=== PATIENT | female | born 1930 | race Two or more races ===

== ENCOUNTER 2018-05-28 13:30 | Outpatient (CLI) | payer MEDICARE, MEDICAID | END 2018-05-28 23:59 | disposition home health service (06) | LOC: WOU 13:30 | PROVIDERS: ATTEND Podiatrist Foot & Ankle Surgery | DX: S81.812A Laceration without foreign body, left lower leg, initial encounter (principal); S81.811A Laceration without foreign body, right lower leg, initial encounter; X58.XXXA Exposure to other specified factors, initial encounter; Y92.89 Other specified places as the place of occurrence of the external cause; S80.12XA Contusion of left lower leg, initial encounter; S80.11XA Contusion of right lower leg, initial encounter; I87.8 Other specified disorders of veins; J44.9 Chronic obstructive pulmonary disease, unspecified; Z87.891 Personal history of nicotine dependence; L90.9 Atrophic disorder of skin, unspecified; Z79.82 Long term (current) use of aspirin; Z79.899 Other long term (current) drug therapy; E07.9 Disorder of thyroid, unspecified | CPT/HCPCS: 11042; 87070; 87077; 87186; A6402; Z7610 ==

== ENCOUNTER 2018-08-15 08:55 | Outpatient (CLI) | payer MEDICARE, MEDICAID ==
[2018-10-02] MEDS ORDERED: CEPH-570 PO (11:33)
[2018-10-02] MEDS ORDERED: FURO40TA5 PO (11:33)
[2018-10-02] MEDS ORDERED: Digoxin PO (11:33)
== END 2018-08-15 23:59 | disposition home health service (06) ==
LOC: WOU 08:55
PROVIDERS: ATTEND Podiatrist Foot & Ankle Surgery
DX: Z51.89 Encounter for other specified aftercare (principal); M79.672 Pain in left foot; M79.671 Pain in right foot; L84 Corns and callosities; L90.9 Atrophic disorder of skin, unspecified; L60.2 Onychogryphosis; B35.1 Tinea unguium; I87.8 Other specified disorders of veins; R60.0 Localized edema
CPT/HCPCS: G0463

== ENCOUNTER 2018-09-30 12:50 | Inpatient (IN) | payer MEDICARE, MEDICAID ==
[~2018-09-30] VITALS: Ht 167.6 cm; Wt 70.8 kg
--- NOTE | 2018-09-30 12:56 | NUR ---
PT BBRA FROM HOME FOR HYPOTENSION; PT AAOX3-4, PT ON MONITOR, VSS, NAD NOTED, MD AT BEDSIDE FOR EVAL
[2018-09-30] MEDS ORDERED: IV NS 0.9% 1,000 ML BAG IV ONE (13:00)
[2018-09-30] MEDS ORDERED: PIPERACILLIN /TAZOBACTAM 3.375 G in IV D5W 50 ML IV ONE (13:00)
[2018-09-30] MEDS ORDERED: VANCOMYCIN 1 GM in IV D5W 250 ML IV ONE (13:00)
--- NOTE | 2018-09-30 13:02 | NUR ---
pt to ct
[2018-09-30 13:13] LABS: BASOPHILS # (AUTO) 0.1 /CMM (0.0-0.2); BASOPHILS % (AUTO) 0.8 % (0.0-2.0); EOSINOPHILS % (AUTO) 1.6 % (0.0-6.0); HEMATOCRIT 31 % (33-45); HEMOGLOBIN 10.5 g/dL (11.5-14.8); LYMPHOCYTES # (AUTO) 1.6 /CMM (0.8-4.8); LYMPHOCYTES % (AUTO) 21.7 % (20.0-44.0); MEAN CORPUSCULAR HGB CONC 34 g/dl (31.0-36.0); MEAN CORPUSCULAR VOLUME 94 fL (82-100); MONOCYTES # (AUTO) 0.7 /CMM (0.1-1.30); MONOCYTES % (AUTO) 9.5 % (2.0-12.0); NEUTROPHILS # (AUTO) 4.8 /CMM (1.8-8.9); NEUTROPHILS % (AUTO) 66.4 % (43.0-81.0); PLATELET COUNT (AUTO) 188 /CMM (150-450); RED BLOOD CELL COUNT(AUTO) 3.32 MIL/uL (4.0-5.2); WHITE BLOOD COUNT (AUTO) 7.2 K/uL (4.3-11.0)
[2018-09-30 13:22] LABS: CALCIUM, SERUM 8.6 mg/dL (8.5-10.1); CARBON DIOXIDE 33 mmol/L (21-32); CHLORIDE 92 mmol/L (98-107); CREATININE 1.8 mg/dL (0.6-1.3); GLUCOSE 105 mg/dL (74-106); POTASSIUM 4.1 mmol/L (3.5-5.1); SODIUM SERUM 133 mmol/L (136-145); UREA NITROGEN, BLOOD 54 mg/dL (7-18)
[2018-09-30 13:28] LABS: ALANINE AMINOTRANSFERASE 13 U/L (12-78); ALBUMIN 3.2 g/dL (3.4-5.0); ALKALINE PHOSPHATASE 49 U/L (46-116); ASPARTATE AMINOTRANSFERASE 33 U/L (15-37); BILIRUBIN,TOTAL 0.4 mg/dL (0.2-1.0); TOTAL PROTEIN, SERUM 7.3 g/dL (6.4-8.2)
[2018-09-30 13:38] LABS: CHOLESTEROL 128 mg/dL (<200); HDL CHOLESTEROL 58 mg/dL (40-60); LDL 60 mg/dL (0-99); TRIGLYCERIDES 62 mg/dL (30-150)
[2018-09-30] MEDS ORDERED: APIX2.5T PO (14:19)
[2018-09-30] MEDS ORDERED: AMIO200T4 PO (14:19)
[2018-09-30] MEDS ORDERED: ATOR10TA PO (14:19)
[2018-09-30] MEDS ORDERED: ESCI5TAB PO (14:19)
[2018-09-30] MEDS ORDERED: TIZA4TAB4 PO (14:19)
[2018-09-30] MEDS ORDERED: CALC-36 PO (14:19)
[2018-09-30] MEDS ORDERED: ERGO500040 PO (14:19)
[2018-09-30] MEDS ORDERED: OMEP20CA10 PO (14:19)
[2018-09-30] MEDS ORDERED: TIOT4MIS3 IH (14:19)
[2018-09-30] MEDS ORDERED: BISO5TAB2 PO (14:19)
[2018-09-30] MEDS ORDERED: FURO40TA5 PO (14:19)
[2018-09-30] MEDS ORDERED: GABA-532 PO (14:19)
--- NOTE | 2018-09-30 14:51 | NUR ---
[id number] TELE DX: TIA
--- NOTE | 2018-09-30 14:59 | NUR ---
REPORT GIVEN TO CHELSEY JIMENEZ FOR GAEL
[2018-09-30] MEDS ORDERED: ACETAMINOPHEN 325 MG TABLET PO PRN (15:00)
--- NOTE | 2018-09-30 15:42 | NUR ---
TRANSFERRED TO [facility]/3RD FLOOR VIA ACLS PROTOCOL
--- NOTE | 2018-09-30 15:47 | NUR ---
TELE/VALVE TESTER PATIENT ADMITTED FROM ER IN STABLE CONDITION TRANSFER VIA STRETCHER ACCOMPANIED BY RN AND INTERNATIONAL COORDINATOR VIA ALS METHOD. A/O X 3, TURKM[place] SPEAKING. ADMITTING DIAGNOSIS LOW BP AND RULE OUT TIA. ON TELE MONITOR NOTED WITH A FIB IN 80'S. AMBULATORY WITH ASSIST. NO SIGNS OF ACUTE DISTRESS. NO COMPLAIN OF PAIN OR DISCOMFORT. CONTINENT OF BOWEL AND BLADDER. ALL NEEDS ATTENDED TO. DAUGHTER AND GRAND DAUGHTER AT BEDSIDE.CALL LIGHT WITHIN REACH. WILL CONTINUE TO MONITOR TO ENSURE SAFETY.
[2018-09-30 16:00] VITALS: BP 108/66
[2018-09-30 16:54] LABS: THYROID STIMULATING HORMONE 0.909 uIU/mL (0.358-3.74)
[2018-09-30] MEDS ORDERED: ATORVASTATIN 10 MG TABLET PO SCH (17:00)
[2018-09-30] MEDS: APIXABAN 2.5 MG TABLET PO SCH (17:24)
[2018-09-30] MEDS: ESCITALOPRAM OXALATE (10 MG) 10 MG TABLET PO SCH (17:24)
[2018-09-30 17:32] VITALS: BP 108/66
[2018-09-30 17:32] LABS: IRON, SERUM 57 ug/dl (50-175); TOTAL IRON BINDING CAPACITY 317 ug/dl (250-450)
--- NOTE | 2018-09-30 18:36 | NUR ---
TELE/RN CLOSING NOTE PATIENT IN BED IN STABLE CONDITION. A/O X 4, [place] SPEAKING. NO SIGNS OF ACUTE DISTRESS. NO COMPLAIN OF PAIN OR DISCOMFORT. ON TELE MONITOR NOTED WITH AFIB 89. FAMILY AT BEDSIDE. ALL NEEDS ATTENDED TO. CALL LIGHT WITHIN REACH. WILL ENDORSE TO NEXT SHIFT FOR CONTINUITY OF CARE.
--- NOTE | 2018-09-30 19:54 | NUR ---
COMBAT SYSTEMS ENGINEER OPENING NOTES RECEIVED PATIENT IN BED AWAKE, ALERT AND ORIENTED X3-4, VERBALLY RESPONSIVE, ABLE TO MAKE NEEDS KNOWN. BURUNDIAN SPEAKING. GRANDDAUGHTER AT BEDSIDE. BREATHING EVEN AND UNLABORED. NO SOB NOTED. TOLERATING ROOM AIR. NO COMPLAINTS OF PAIN OR DISCOMFORT. NO FACIAL GRIMACING. IV ON LEFT HAND AND RIGHT AC INTACT AND PATENT. SKIN DRY AND WARM TO TOUCH. AFEBRILE. ALL OTHER NEEDS ATTENDED TO. SAFETY MEASURES IN PLACE. CALL LIGHT WITHIN REACH. WILL CONTINUE TO MONITOR.
[2018-09-30 20:26] VITALS: BP 93/60
[2018-09-30] MEDS: ATORVASTATIN 10 MG TABLET PO SCH (21:33)
[2018-09-30 22:48] LABS: APPEARANCE,URINE SL CLOUDY (CLEAR); BILIRUBIN,URINE NEGATIVE (NEGATIVE); BLOOD, URINE 1+ Ery/uL (NEGATIVE); COLOR,URINE YELLOW (YELLOW); KETONES,URINE NEGATIVE (NEGATIVE); LEUKOCYTE ESTERASE ,URINE 3+ (NEGATIVE); NITRITE, URINE NEGATIVE (NEGATIVE); PH,URINE 6.5 (5.0-8.0); PROTEIN,URINE NEGATIVE (NEGATIVE); UGLUCOSE NEGATIVE (NEGATIVE); UROBILINOGEN,URINE 0.2 EU/dL (0.2)
[2018-09-30 23:27] LABS: BACTERIA,URINE Moderate /HPF (None Seen); WBC,URINE TOO NUMEROUS TO COUN /HPF (0-3)
[2018-09-30 23:28] LABS: SQUAMOUS EPITHELIAL CELL,UR Moderate /HPF (None Seen)
[2018-10-01] VITALS (7 sets, daily range): BP systolic 87–114; BP diastolic 61–77
--- NOTE | 2018-10-01 04:35 | NUR ---
WOMEN'S MINISTRY DIRECTOR NOTES PATIENT'S BP 87/61 HR 77. NO FLUIDS PER MD DUE TO POSSIBLE CHF. LEGS ELEVATED SINCE BEGINNING OF SHIFT. PATIENT IS ASYMPTOMATIC. AFIB 80s ON TELE MONITOR. PAGED CEMETERY KEEPER ASHLEY CHATMAN FOR ANY ORDERS. AWAITING CALL BACK.
--- NOTE | 2018-10-01 05:10 | NUR ---
CARE MANAGEMENT ASSOCIATE NOTES CHUCK CHATMAN PAGED BACK REGARDING LOW BP WITH NO NEW ORDERS. WILL CONTINUE TO MONITOR.
--- NOTE | 2018-10-01 06:50 | NUR ---
PROPERTY MAN CLOSING NOTES PATIENT RESTING IN BED. NOT IN ANY DISTRESS. GRANDDAUGHTER AT BEDSIDE. BREATHING EVEN AND UNLABORED. NO SOB NOTED. TOLERATING ROOM AIR. NO COMPLAINTS OF PAIN OR DISCOMFORT. NO FACIAL GRIMACING. IV ON LEFT HAND AND RIGHT AC INTACT AND PATENT. SKIN DRY AND WARM TO TOUCH. AFEBRILE. ALL OTHER NEEDS ATTENDED TO. SAFETY MEASURES IN PLACE. CALL LIGHT WITHIN REACH. WILL ENDORSE TO ONCOMING NURSE FOR GAEL.
[2018-10-01 07:26] LABS: BASOPHILS % (AUTO) 0.6 % (0.0-2.0); EOSINOPHILS % (AUTO) 2.2 % (0.0-6.0); HEMATOCRIT 31 % (33-45); HEMOGLOBIN 10.6 g/dL (11.5-14.8); LYMPHOCYTES # (AUTO) 1.3 /CMM (0.8-4.8); LYMPHOCYTES % (AUTO) 20.8 % (20.0-44.0); MEAN CORPUSCULAR HGB CONC 34 g/dl (31.0-36.0); MEAN CORPUSCULAR VOLUME 94 fL (82-100); MONOCYTES # (AUTO) 0.6 /CMM (0.1-1.30); MONOCYTES % (AUTO) 9.4 % (2.0-12.0); NEUTROPHILS # (AUTO) 4.2 /CMM (1.8-8.9); PLATELET COUNT (AUTO) 191 /CMM (150-450); RED BLOOD CELL COUNT(AUTO) 3.32 MIL/uL (4.0-5.2); WHITE BLOOD COUNT (AUTO) 6.2 K/uL (4.3-11.0)
[2018-10-01 07:30] LABS: CALCIUM, SERUM 8.6 mg/dL (8.5-10.1); CARBON DIOXIDE 32 mmol/L (21-32); CHLORIDE 97 mmol/L (98-107); CREATININE 1.7 mg/dL (0.6-1.3); GLUCOSE 98 mg/dL (74-106); POTASSIUM 2.9 mmol/L (3.5-5.1); SODIUM SERUM 138 mmol/L (136-145); UREA NITROGEN, BLOOD 45 mg/dL (7-18)
[2018-10-01 07:40] LABS: CHOLESTEROL 122 mg/dL (<200); HDL CHOLESTEROL 55 mg/dL (40-60); LDL 58 mg/dL (0-99); THYROID STIMULATING HORMONE 0.579 uIU/mL (0.358-3.74); TRIGLYCERIDES 94 mg/dL (30-150)
[2018-10-01] MEDS ORDERED: BISOPROLOL FUMARATE 5 MG TABLET PO SCH (09:00)
[2018-10-01] MEDS ORDERED: AMIODARONE HCL 200 MG TABLET PO SCH (09:00)
--- NOTE | 2018-10-01 09:00 | NUR ---
DR. JUAREZ IN EARLIER,MEDS ORDERED.DIGOXIN IV ORDERED.
[2018-10-01] MEDS: FLUTICASONE/VILANTEROL 1 EACH BLST.W.DEV IH SCH (09:08)
[2018-10-01] MEDS: CALCIUM CITRATE(CITRACAL) /VITAMIN D 1 TAB TABLET PO SCH (09:08)
[2018-10-01] MEDS: POTASSIUM CHLORIDE 20 MEQ TAB.PRT.SR PO SCH ×4 (09:08→12:36)
[2018-10-01] MEDS: PANTOPRAZOLE 40 MG TABLET.DR PO SCH (09:08)
[2018-10-01] MEDS: APIXABAN 2.5 MG TABLET PO SCH ×2 (09:10→18:22)
--- NOTE | 2018-10-01 10:30 | NUR ---
FAMILY IN TO VISIT ALL DAY.
[2018-10-01] MEDS ORDERED: CEFTRIAXONE 1 G in IV D5W 50 ML IV SCH (12:00)
[2018-10-01] MEDS: DIGOXIN INJ 0.5 MG/2 ML AMPUL IV SCH ×2 (12:24→18:23)
--- NOTE | 2018-10-01 14:00 | NUR ---
DR. ROJAS IN PT. WITH UTI,STARTED ON ROCEPHIN.
[2018-10-01] MEDS: ESCITALOPRAM OXALATE (10 MG) 10 MG TABLET PO SCH (18:24)
--- NOTE | 2018-10-01 18:59 | NUR ---
HAD SECOND DOSE OF DIGOXIN IV-TOLERATED WELL.
--- NOTE | 2018-10-01 19:32 | NUR ---
RN MS OPENING NOTES RECEIVED PATIENT IN BED AWAKE, ALERT AND ORIENTED X3, VERBALLY RESPONSIVE, ABLE TO MAKE NEEDS KNOWN. ROMANIAN SPEAKING. FAMILY AT BEDSIDE. BREATHING EVEN AND UNLABORED. NO SOB NOTED. TOLERATING ROOM AIR. NO COMPLAINTS OF PAIN OR DISCOMFORT. NO FACIAL GRIMACING. IV ON LEFT HAND AND RIGHT AC INTACT AND PATENT. SKIN DRY AND WARM TO TOUCH. AFEBRILE. ALL OTHER NEEDS ATTENDED TO. SAFETY MEASURES IN PLACE. CALL LIGHT WITHIN REACH. WILL CONTINUE TO MONITOR.
[2018-10-01] MEDS: ATORVASTATIN 10 MG TABLET PO SCH (21:26)
[2018-10-02] MEDS: DIGOXIN INJ 0.5 MG/2 ML AMPUL IV SCH (00:44)
[2018-10-02 05:21] VITALS: BP_SYST 121; BP_SYST 89; BP_SYST 99; BP_DIAS 60; BP_DIAS 67; BP_DIAS 69
--- NOTE | 2018-10-02 06:30 | NUR ---
RN MS CLOSING NOTES PATIENT RESTING IN BED. NOT IN ANY DISTRESS. GRANDDAUGHTER AT BEDSIDE. TOLERATED LAST DOSE OF DIGOXIN LAST NIGHT. BREATHING EVEN AND UNLABORED. NO SOB NOTED. TOLERATING ROOM AIR. NO COMPLAINTS OF PAIN OR DISCOMFORT. NO FACIAL GRIMACING. IV ON LEFT HAND AND RIGHT AC INTACT AND PATENT. SKIN DRY AND WARM TO TOUCH. AFEBRILE. ALL OTHER NEEDS ATTENDED TO. SAFETY MEASURES IN PLACE. CALL LIGHT WITHIN REACH. WILL ENDORSE TO ONCOMING NURSE FOR GAEL.
[2018-10-02 06:33] LABS: BASOPHILS % (AUTO) 0.7 % (0.0-2.0); HEMATOCRIT 31 % (33-45); HEMOGLOBIN 10.7 g/dL (11.5-14.8); LYMPHOCYTES # (AUTO) 1.5 /CMM (0.8-4.8); LYMPHOCYTES % (AUTO) 23.1 % (20.0-44.0); MEAN CORPUSCULAR HGB CONC 34 g/dl (31.0-36.0); MEAN CORPUSCULAR VOLUME 93 fL (82-100); MONOCYTES # (AUTO) 0.7 /CMM (0.1-1.30); MONOCYTES % (AUTO) 10.5 % (2.0-12.0); NEUTROPHILS # (AUTO) 4.2 /CMM (1.8-8.9); NEUTROPHILS % (AUTO) 63.7 % (43.0-81.0); PLATELET COUNT (AUTO) 191 /CMM (150-450); RED BLOOD CELL COUNT(AUTO) 3.36 MIL/uL (4.0-5.2); WHITE BLOOD COUNT (AUTO) 6.6 K/uL (4.3-11.0)
--- NOTE | 2018-10-02 07:00 | NUR ---
PT IN BED. NOT IN ANY DISTRESS. GRANDDAUGHTER AT BEDSIDE. BREATHING EVEN AND UNLABORED. NO SOB NOTED.ON ROOM AIR. NO COMPLAINTS OF PAIN OR DISCOMFORT. IV ON LEFT HAND AND RIGHT AC INTACT AND PATENT. SKIN DRY AND WARM TO TOUCH. AFEBRILE. SAFETY MEASURES IN PLACE. CALL LIGHT WITHIN REACH. WILL CONTINUE TO MONITOR
[2018-10-02 07:05] LABS: CALCIUM, SERUM 8.7 mg/dL (8.5-10.1); CARBON DIOXIDE 30 mmol/L (21-32); CHLORIDE 100 mmol/L (98-107); CREATININE 1.5 mg/dL (0.6-1.3); GLUCOSE 93 mg/dL (74-106); POTASSIUM 3.9 mmol/L (3.5-5.1); SODIUM SERUM 139 mmol/L (136-145); UREA NITROGEN, BLOOD 34 mg/dL (7-18)
[2018-10-02 07:30] VITALS: BP 92/54
[2018-10-02 08:00] VITALS: BP 92/54
[2018-10-02] MEDS: CALCIUM CITRATE(CITRACAL) /VITAMIN D 1 TAB TABLET PO SCH (08:48)
[2018-10-02] MEDS: PANTOPRAZOLE 40 MG TABLET.DR PO SCH (08:49)
[2018-10-02] MEDS: FLUTICASONE/VILANTEROL 1 EACH BLST.W.DEV IH SCH (08:50)
[2018-10-02] MEDS: APIXABAN 2.5 MG TABLET PO SCH (08:53)
[2018-10-02] MEDS ORDERED: Digoxin PO (11:33)
[2018-10-02] MEDS ORDERED: CEPH-570 PO (11:33)
[2018-10-02] MEDS ORDERED: FURO40TA5 PO (11:33)
--- NOTE | 2018-10-02 12:35 | NUR ---
PATIENT CLEARED BY MD FOR DISCHARGE TO HOME. PATIENT A/OX4 , FAMILY MEMBERS AT BEDSIDE. D/C INSTRUCTIONS, EDUCATION AND NEW PRESCRIPTION PROVIDED TO FAMILY AND THE PATIENT. IV LINE REMOVED , ID BAND REMOVED, PATIENT SIGHED VALUABLE FORM AND D/C INSTRUCTIONS. PATIENT WILL SEE DR. GREY IN ONE WEEK DIRECTED.
[2018-10-02] MEDS ORDERED: DIGOXIN 0.125 MG TABLET PO SCH (13:00)
[2018-10-06] MEDS ORDERED: ERGOCALCIFEROL (VITAMIN D 2) 50,000 UNIT CAPSULE PO SCH (09:00)
== END 2018-10-02 13:04 | disposition home health service (06) | DRG 73 ==
LOC: ER 12:52 → TELE 15:02 → MED 10-01 09:16
PROVIDERS: ADMIT Nurse Practitioner Acute Care; ATTEND Nurse Practitioner Acute Care
DX: G90.8 Other disorders of autonomic nervous system (principal); N17.0 Acute kidney failure with tubular necrosis; E44.1 Mild protein-calorie malnutrition; D68.59 Other primary thrombophilia; G93.40 Encephalopathy, unspecified; E87.1 Hypo-osmolality and hyponatremia; N39.0 Urinary tract infection, site not specified; E86.0 Dehydration; I50.9 Heart failure, unspecified; I11.0 Hypertensive heart disease with heart failure; I48.91 Unspecified atrial fibrillation; I95.9 Hypotension, unspecified; E87.6 Hypokalemia; E86.1 Hypovolemia; D63.8 Anemia in other chronic diseases classified elsewhere; J44.9 Chronic obstructive pulmonary disease, unspecified; Z87.891 Personal history of nicotine dependence; Z90.710 Acquired absence of both cervix and uterus; Z79.01 Long term (current) use of anticoagulants
CPT/HCPCS: 36415; 70450-TC; 71045-TC; 80048-TC; 80061-TC; 80076-TC; 80305; 81000-TC; 82728-TC; 83540-TC; 83605-TC; 84439-TC; 84443-TC; 84484-TC; 85025-TC; 85730-TC; 87040-TC; 87081-TC; 87086-TC; 92611-TC; 93307-TC; 93880-TC; G0378; J0696; J1160; J2543; J3370; J7030; J7060

== ENCOUNTER 2018-10-14 10:00 | Outpatient (CLI) | payer MEDICARE, MEDICAID ==
[~2018-10-14 10:00] MED LIST: APIX2.5T PO; CALC-36 PO; CEPH-570 PO; Digoxin PO; ERGO500040 PO; ESCI5TAB PO; FURO40TA5 PO; OMEP20CA11 PO; TIOT4MIS3 IH
== END 2018-10-14 23:59 | disposition home health service (06) ==
LOC: WOU 10:00
PROVIDERS: ATTEND Podiatrist Foot & Ankle Surgery
DX: L60.0 Ingrowing nail (principal); B35.1 Tinea unguium; L84 Corns and callosities; M20.42 Other hammer toe(s) (acquired), left foot; Z79.82 Long term (current) use of aspirin
CPT/HCPCS: A6402; G0463

== ENCOUNTER 2018-12-16 10:20 | Outpatient (CLI) | payer MEDICARE, MEDICAID ==
[~2018-12-16 10:20] MED LIST changes: +OMEP20CA10 PO; -OMEP20CA11 PO
== END 2018-12-16 23:59 | disposition home health service (06) ==
LOC: WOU 10:20
PROVIDERS: ATTEND Podiatrist Foot & Ankle Surgery
DX: L84 Corns and callosities (principal); L90.9 Atrophic disorder of skin, unspecified; L60.0 Ingrowing nail; M79.4 Hypertrophy of (infrapatellar) fat pad; M20.42 Other hammer toe(s) (acquired), left foot; M20.41 Other hammer toe(s) (acquired), right foot; B35.1 Tinea unguium; R60.0 Localized edema
CPT/HCPCS: G0463

== ENCOUNTER 2019-02-17 10:30 | Outpatient (CLI) | payer MEDICARE, MEDICAID ==
[~2019-02-17 10:30] MED LIST changes: -OMEP20CA10 PO; +OMEP20CA11 PO
== END 2019-02-17 23:59 | disposition home health service (06) ==
LOC: WOU 10:30
PROVIDERS: ATTEND Podiatrist Foot & Ankle Surgery
DX: B35.1 Tinea unguium (principal); L60.0 Ingrowing nail; S80.12XD Contusion of left lower leg, subsequent encounter; X58.XXXD Exposure to other specified factors, subsequent encounter; M79.672 Pain in left foot; M79.671 Pain in right foot
CPT/HCPCS: G0463

== ENCOUNTER 2019-04-17 09:00 | Outpatient (CLI) | payer MEDICARE, MEDICAID | END 2019-04-17 23:59 | disposition home or self-care (01) | LOC: WOU 09:00 | PROVIDERS: ATTEND Podiatrist Foot & Ankle Surgery | DX: B35.1 Tinea unguium (principal); M79.671 Pain in right foot; M79.672 Pain in left foot | CPT/HCPCS: G0463 ==

== ENCOUNTER 2019-06-19 09:50 | Outpatient (CLI) | payer MEDICARE, MEDICAID | END 2019-06-19 23:59 | disposition home or self-care (01) | LOC: WOU 09:50 | PROVIDERS: ATTEND Podiatrist Foot & Ankle Surgery | DX: L60.0 Ingrowing nail (principal); L84 Corns and callosities; I83.90 Asymptomatic varicose veins of unspecified lower extremity; L90.9 Atrophic disorder of skin, unspecified; M20.42 Other hammer toe(s) (acquired), left foot; M20.41 Other hammer toe(s) (acquired), right foot | CPT/HCPCS: G0463 ==

== ENCOUNTER 2019-08-14 09:20 | Outpatient (CLI) | payer MEDICARE, MEDICAID ==
[~2019-08-14 09:20] MED LIST changes: +OMEP-293 PO; -OMEP20CA11 PO
== END 2019-08-14 23:59 | disposition home health service (06) ==
LOC: WOU 09:20
PROVIDERS: ATTEND Podiatrist Foot & Ankle Surgery
DX: S81.802A Unspecified open wound, left lower leg, initial encounter (principal); X58.XXXA Exposure to other specified factors, initial encounter; Y92.89 Other specified places as the place of occurrence of the external cause; J44.9 Chronic obstructive pulmonary disease, unspecified; Z87.891 Personal history of nicotine dependence; E07.9 Disorder of thyroid, unspecified; Z79.01 Long term (current) use of anticoagulants; Z79.51 Long term (current) use of inhaled steroids
CPT/HCPCS: 11042

== ENCOUNTER 2019-08-18 10:54 | Emergency (ER) | payer MEDICARE, OTHER ==
[~2019-08-18] VITALS: Ht 167.6 cm; Wt 70.3 kg
[2019-08-18 11:00] VITALS: BP 141/77
[2019-08-18] MEDS ORDERED: oxyCODONE/APAP (5/325 MG) 1 UDTAB TABLET ONE (12:03)
[2019-08-18 12:04] LABS: BASOPHILS % (AUTO) 0.5 % (0.0-2.0); EOSINOPHILS % (AUTO) 1.9 % (0.0-6.0); HEMATOCRIT 30 % (33-45); HEMOGLOBIN 9.8 g/dL (11.5-14.8); LYMPHOCYTES % (AUTO) 13.4 % (20.0-44.0); MEAN CORPUSCULAR HGB CONC 33 g/dl (31.0-36.0); MEAN CORPUSCULAR VOLUME 93 fL (82-100); MONOCYTES # (AUTO) 0.7 /CMM (0.1-1.30); MONOCYTES % (AUTO) 10.1 % (2.0-12.0); NEUTROPHILS # (AUTO) 5.3 /CMM (1.8-8.9); NEUTROPHILS % (AUTO) 74.1 % (43.0-81.0); PLATELET COUNT (AUTO) 173 /CMM (150-450); RED BLOOD CELL COUNT(AUTO) 3.19 MIL/uL (4.0-5.2); WHITE BLOOD COUNT (AUTO) 7.2 K/uL (4.3-11.0)
[2019-08-18 12:06] LABS: CALCIUM, SERUM 8.7 mg/dL (8.5-10.1); CARBON DIOXIDE 28 mmol/L (21-32); CHLORIDE 96 mmol/L (98-107); CREATININE 1.7 mg/dL (0.6-1.3); GLUCOSE 89 mg/dL (74-106); POTASSIUM 3.9 mmol/L (3.5-5.1); SODIUM SERUM 132 mmol/L (136-145); UREA NITROGEN, BLOOD 27 mg/dL (7-18)
[2019-08-18] MEDS: oxyCODONE/APAP (5/325 MG) 1 UDTAB TABLET PO ONE (12:13)
[2019-08-18] MEDS: DOXYCYCLINE 100 MG in IV D5W 100 ML IV ONE (12:13)
== END 2019-08-18 13:13 | disposition home or self-care (01) ==
LOC: ER 10:54
DX: S80.812A Abrasion, left lower leg, initial encounter (principal); L03.116 Cellulitis of left lower limb; I10 Essential (primary) hypertension; I48.91 Unspecified atrial fibrillation; E78.5 Hyperlipidemia, unspecified; K21.9 Gastro-esophageal reflux disease without esophagitis; R00.0 Tachycardia, unspecified; Z79.899 Other long term (current) drug therapy; W22.8XXA Striking against or struck by other objects, initial encounter; Y93.89 Activity, other specified; Y92.89 Other specified places as the place of occurrence of the external cause; Y99.8 Other external cause status
CPT/HCPCS: 36415; 80048; 83605; 85025; 96365; 99283; J3490; J7060

== ENCOUNTER 2019-08-21 09:20 | Outpatient (CLI) | payer MEDICARE, MEDICAID ==
[~2019-08-21 09:20] MED LIST changes: -OMEP-293 PO; +OMEP20CA15 PO
== END 2019-08-21 23:59 | disposition home health service (06) ==
LOC: WOU 09:20
PROVIDERS: ATTEND Podiatrist Foot & Ankle Surgery
DX: S81.812D Laceration without foreign body, left lower leg, subsequent encounter (principal); X58.XXXD Exposure to other specified factors, subsequent encounter; B35.1 Tinea unguium; L84 Corns and callosities; L90.9 Atrophic disorder of skin, unspecified; L81.9 Disorder of pigmentation, unspecified
CPT/HCPCS: A6209; G0463

== ENCOUNTER 2019-08-28 10:20 | Outpatient (CLI) | payer MEDICARE, MEDICAID | END 2019-08-28 23:59 | disposition home health service (06) | LOC: WOU 10:20 | PROVIDERS: ATTEND Podiatrist Foot & Ankle Surgery | DX: S81.802A Unspecified open wound, left lower leg, initial encounter (principal); L03.116 Cellulitis of left lower limb; X58.XXXA Exposure to other specified factors, initial encounter; Y92.89 Other specified places as the place of occurrence of the external cause; M79.671 Pain in right foot; M79.672 Pain in left foot; L84 Corns and callosities; F28 Other psychotic disorder not due to a substance or known physiological condition | CPT/HCPCS: 11042; A6210; A6452 ==

== ENCOUNTER 2019-09-04 10:30 | Outpatient (CLI) | payer MEDICARE, MEDICAID | END 2019-09-04 23:59 | disposition home health service (06) | LOC: WOU 10:30 | PROVIDERS: ATTEND Podiatrist Foot & Ankle Surgery | DX: S81.802A Unspecified open wound, left lower leg, initial encounter (principal); X58.XXXA Exposure to other specified factors, initial encounter; Y92.89 Other specified places as the place of occurrence of the external cause; R60.0 Localized edema; M79.671 Pain in right foot; M79.672 Pain in left foot; L84 Corns and callosities; L90.9 Atrophic disorder of skin, unspecified | CPT/HCPCS: 11042; A6210; A6452 ==

== ENCOUNTER 2019-09-11 10:30 | Outpatient (CLI) | payer MEDICARE, MEDICAID | END 2019-09-11 23:59 | disposition home health service (06) | LOC: WOU 10:30 | PROVIDERS: ATTEND Podiatrist Foot & Ankle Surgery | PROC: 0H9KXZZ Drainage of Right Lower Leg Skin, External Approach (ICD-10-PCS; principal; 2019-09-11) | DX: S81.802D Unspecified open wound, left lower leg, subsequent encounter (principal); X58.XXXD Exposure to other specified factors, subsequent encounter; S80.11XA Contusion of right lower leg, initial encounter; W22.8XXA Striking against or struck by other objects, initial encounter; Y93.E1 Activity, personal bathing and showering; Y92.012 Bathroom of single-family (private) house as the place of occurrence of the external cause | CPT/HCPCS: 10140; 11042; A6210; 10060 ==

== ENCOUNTER 2019-09-18 10:00 | Outpatient (CLI) | payer MEDICARE, MEDICAID | END 2019-09-18 23:59 | disposition home health service (06) | LOC: WOU 10:00 | PROVIDERS: ATTEND Podiatrist Foot & Ankle Surgery | DX: S81.802A Unspecified open wound, left lower leg, initial encounter (principal); X58.XXXA Exposure to other specified factors, initial encounter; Y92.89 Other specified places as the place of occurrence of the external cause; S80.11XD Contusion of right lower leg, subsequent encounter; X58.XXXD Exposure to other specified factors, subsequent encounter; M79.671 Pain in right foot; M79.672 Pain in left foot; B35.1 Tinea unguium; Z79.01 Long term (current) use of anticoagulants; Z79.899 Other long term (current) drug therapy; L90.9 Atrophic disorder of skin, unspecified; L03.90 Cellulitis, unspecified | CPT/HCPCS: 11042; A6210 ==

== ENCOUNTER 2019-09-25 10:30 | Outpatient (CLI) | payer MEDICARE, MEDICAID | END 2019-09-25 23:59 | disposition home or self-care (01) | LOC: WOU 10:30 | PROVIDERS: ATTEND Podiatrist Foot & Ankle Surgery | DX: S81.811A Laceration without foreign body, right lower leg, initial encounter (principal); X58.XXXA Exposure to other specified factors, initial encounter; Y92.89 Other specified places as the place of occurrence of the external cause; L90.9 Atrophic disorder of skin, unspecified | CPT/HCPCS: 11042; A6210 ==

== ENCOUNTER 2019-10-02 09:54 | Outpatient (CLI) | payer MEDICARE, MEDICAID | END 2019-10-02 23:59 | disposition home or self-care (01) | LOC: WOU 09:54 | PROVIDERS: ATTEND Podiatrist Foot & Ankle Surgery | DX: S81.801A Unspecified open wound, right lower leg, initial encounter (principal); X58.XXXA Exposure to other specified factors, initial encounter; Y92.89 Other specified places as the place of occurrence of the external cause; Z87.891 Personal history of nicotine dependence; L90.9 Atrophic disorder of skin, unspecified; J44.9 Chronic obstructive pulmonary disease, unspecified; E07.9 Disorder of thyroid, unspecified; L84 Corns and callosities; M79.671 Pain in right foot; M79.672 Pain in left foot | CPT/HCPCS: 11042 ==

== ENCOUNTER 2019-10-16 09:30 | Outpatient (CLI) | payer MEDICARE, MEDICAID | END 2019-10-16 23:59 | disposition home or self-care (01) | LOC: WOU 09:30 | PROVIDERS: ATTEND Podiatrist Foot & Ankle Surgery | DX: S81.811D Laceration without foreign body, right lower leg, subsequent encounter (principal); X58.XXXD Exposure to other specified factors, subsequent encounter; I87.8 Other specified disorders of veins; Z79.899 Other long term (current) drug therapy; L90.9 Atrophic disorder of skin, unspecified; Z79.01 Long term (current) use of anticoagulants; M79.671 Pain in right foot; M79.672 Pain in left foot; B35.1 Tinea unguium; L84 Corns and callosities | CPT/HCPCS: G0463 ==